=== PATIENT | male | born 1965 | race Caucasian/White ===

== ENCOUNTER 2017-09-25 08:59 | Day surgery (SDC) | payer OTHER ==
[~2017-09-25] VITALS: Ht 172.7 cm; Wt 93.0 kg
[~2017-09-25 08:59] MED LIST: COMTAN200 MG PO; FLOMAX0.4 MG PO; GLUCOPHAGE500 MG PO; LIPITOR40 MG PO; SINEMET 25-1001 EACH PO; ULTRAM50 MG PO; ZOFRAN4 MG PO; [UNRECOGNIZED DRUG - OTHER] PO
[2017-09-25 09:56] LABS: CHLORIDE 104 MEQ/L (99-109); CREATININE 1.1 MG/DL (0.6-1.3); GFR ESTIMATE (CALCULATED) > 59 mL/min/ (58.99-99999); GLUCOSE 108 mg/dL (70-99); POTASSIUM 4.6 MEQ/L (3.7-5.4); SODIUM 140 MEQ/L (136-147); UREA NITROGEN (BUN) 13 mg/dL (9-23)
[2017-09-25 09:59] VITALS: BP 118/65
[2017-09-25 13:55] VITALS: BP 139/88
[2017-09-25 14:45] VITALS: BP 135/75
== END 2017-09-25 14:50 | disposition home or self-care (01) ==
LOC: SDC 08:59
PROVIDERS: Urology
PROC: 0TJ98ZZ Inspection of Ureter, Via Natural or Artificial Opening Endoscopic (ICD-10-PCS; principal; 2017-09-25)
PROC: BT1F1ZZ Fluoroscopy of Left Kidney, Ureter and Bladder using Low Osmolar Contrast (ICD-10-PCS; principal; 2017-09-25)
PROC: 0TCB8ZZ Extirpation of Matter from Bladder, Via Natural or Artificial Opening Endoscopic (ICD-10-PCS; principal; 2017-09-25)
DX: N20.1 Calculus of ureter (principal); I10 Essential (primary) hypertension; E11.9 Type 2 diabetes mellitus without complications; G20 Parkinson's disease; Z79.84 Long term (current) use of oral hypoglycemic drugs; Z87.891 Personal history of nicotine dependence
CPT/HCPCS: 74420; 80048; 82365 90; 82948; 93005; C2625; J0330; J0690; J1885; J2250; J3010